=== PATIENT | female | born 2000 | race Caucasian/White ===

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

== ENCOUNTER 2021-03-25 03:36 | Emergency (ER) | payer SELFPAY ==
[~2021-03-25] VITALS: Ht 157.5 cm; Wt 54.5 kg
[~2021-03-25 03:36] MED LIST changes: +AZIT250T6 PO
--- NOTE | 2021-03-25 04:09 | PHYS DOC ---
Past History Past Medical History: Anxiety, Other Past Surgical History: No Surgical History Smoking: Less than 1pk/day Alcohol Use: Rarely Drug Use: None Adult General Chief Complaint Chief Complaint: Palpitations HPI HPI Patient is a 21-year-old female who presents with a chief complaint of racing heart after doing cocaine about an hour and a half before coming to the emergency department states that she does cocaine every couple of days. States that about a half an hour before coming in she smokes marijuana to try to calm down. Denies any headache, changes in vision, chest pain, shortness of breath, abdominal pain, nausea, vomiting, dysuria, hematuria or blood in the stool. Denies any numbness/weakness/tingling. Denies any trouble sitting, standing or walking. Denies any hallucinations. Review of Systems Review of Systems Review of systems otherwise unremarkable except noted in HPI Allergies Allergies Allergies Coded Allergies Type Severity Reaction Last Updated Verified egg Allergy Intermediate 08/21/17 Yes Physical Exam Physical Exam Constitutional: Well developed, well nourished, no acute distress, non-toxic appearance. [] HENT: Normocephalic, atraumatic, Eyes: PERRLA, EOMI, conjunctiva normal, no discharge. [] Cardiovascular:Heart rate regular rhythm, no murmur [] Lungs & Thorax: Bilateral breath sounds clear to auscultation [] Skin: Warm, dry, no erythema, no rash. [] Extremities: No tenderness, no cyanosis, no clubbing, ROM intact, no edema. [] Neurologic: Alert and oriented X 3, normal motor function, normal sensory function, able to sit, stand and walk without issue, no focal deficits noted. [] Psychologic: Affect normal, judgement normal, mood normal. [] EKG EKG [] Radiology/Procedures Radiology/Procedures [] Heart Score C/O Chest Pain: No Risk Factors: Risk Factors: DM, Current or recent (<one month) smoker, HTN, HLP, family history of CAD, obesity. Risk Scores: Risk Factors: DM, Current or recent (<one month) smoker, HTN, HLP, family history of CAD, obesity. Course & Med Decision Making Course & Med Decision Making Patient is a 21-year-old female who presents with racing heart after snorting cocaine and smoking marijuana Vital signs not concerning. Physical exam noted above. EKG noted above and normal. Negative . Given diazepam. Discussed all findings with patient advised to quit using wallace destiny and marijuana. Advised to call primary care physician in the morning and update on ED visit and need for discussions about stopping substance abuse. Give strict return precautions to the ED. Patient grateful, verbalized understanding and agreed with plan of discharge. [] Dragon Disclaimer Dragon Disclaimer This electronic medical record was generated, in whole or in part, using a voice recognition dictation system. Departure Departure: Impression: Primary Impression: Cocaine abuse Additional Impression: Marijuana abuse Disposition: HOME / SELF CARE / HOMELESS Condition: GOOD Referrals: GRANT DUNN MD (PCP) Patient Instructions: Cocaine Abuse-Brief, Substance Abuse-Brief Additional Instructions: Thank you for coming into the emergency department tonight and allowing us to take care of you. Please read all of the attached information very carefully to go back over what we discussed. You were given a benzodiazepine to control anxiety and feelings of racing heart. Your heart was not racing here in the em ergency department and your blood pressure was normal. Please call your primary care physician in the morning to update on your ED visit and discuss ways of stopping substance use as these can cause heart attacks and strokes. Please come back to the emergency department immediately with new or concerning symptoms as discussed. Problem Qualifiers SONYA MCCULLOUGH MD Mar 25, 2021 04:09
--- NOTE | 2021-03-25 04:15 | EKG ---
[address] [address] Test Date: 2021-03-25 Test Time: 03:55:17 Pat Name: RENETTA KEVIN Department: Room: Gender: F Senior Chemical Engineer: : 2000 Requested By: SONYA MCCULLOUGH Order Number: [id number] Reading MD: Neymar Jaimes Measurements Intervals [place] Rate: 68 P: 32 CT: 114 QRS: 52 QRSD: 86 T: 38 QT: 382 QTc: 406 Interpretive Statements SINUS RHYTHM T ABNORMALITY IN ANTEROSEPTAL LEADS ABNORMAL ECG RI6.02 No previous ECG available for comparison Electronically Signed On 03-25-2021 11:45:56 CDT by Neymar Jaimes
[2021-03-25 04:18] VITALS: BP 144/82
[2021-03-25] MEDS ORDERED: diazePAM 5 MG TABLET. PO ONE (04:30)
== END 2021-03-25 04:28 | disposition home or self-care (01) ==
LOC: ER 03:36
DX: F14.10 Cocaine abuse, uncomplicated (principal); F12.10 Cannabis abuse, uncomplicated; F17.200 Nicotine dependence, unspecified, uncomplicated; F41.9 Anxiety disorder, unspecified; Z91.012 Allergy to eggs
CPT/HCPCS: 81025; 93005; 99283

== ENCOUNTER 2021-07-14 07:49 | Emergency (ER) | payer OTHER ==
[~2021-07-14] VITALS: Ht 157.5 cm; Wt 62.1 kg
[2021-07-14] MEDS ORDERED: ACETAMINOPHEN 500 MG TABLET PO ONE (08:45)
[2021-07-14] MEDS ORDERED: ONDANSETRON ODT 4 MG TAB.RAPDIS PO ONE (08:45)
[2021-07-14] MEDS ORDERED: ACETAMINOPHEN 325 MG TABLET PO ONE (08:45)
[2021-07-14 09:24] LABS: AMORPHOUS SEDIMENT,UR PRESENT /HPF; BACTERIA,URINE FEW /HPF (0-FEW); BILIRUBIN,URINE NEG (NEG); CLARITY,URINE TURBID; COLOR,URINE AMBER; GLUCOSE,URINE NEG (NEG); NITRITE,URINE NEG (NEG); RBC,URINE 0 /HPF (0-2); SQUAMOUS EPITHELIAL CELL,UR FEW /LPF
--- NOTE | 2021-07-14 09:37 | RAD ---
INDICATION: Reason: abdominal pain in / Spl. Instructions: / History: COMPARISON: None. TECHNIQUE: Grayscale and color ultrasound images of the pelvis. FINDINGS: Uterus: 97 x 72 x 77 mm. Intrauterine gestational sac is seen and unremarkable. Too early in gestation to adequately assess p lacenta. pole seen. CRL: 27 mm. Estimated Gestational Age: 9 weeks and 3 days based on ultrasound and 8 weeks and 5 days based on las t menstrual. Heart Beat: 175 Right Ovary: 36 x 24 x 13 mm. Left Ovary: 30 x 24 x 13 mm. Vascular flow identified to bilateral ovaries. IMPRESSION: * Intrauterine is seen with positive heart beat. * Recommend routine anomaly screening at 18-22 weeks. Electronically signed by: Bridger Delgado MD (07/14/2021 9:35 AM) [id number]
[2021-07-14] MEDS ORDERED: ONDA4TAB12 PO (10:28)
[2021-07-14] MEDS ORDERED: PREN1TAB86 PO (10:28)
--- NOTE | 2021-07-14 10:29 | PHYS DOC ---
Past History Past Medical History: Anxiety, Other Additional Past Medical Histor: paracardial fat necrosis Past Surgical History: No Surgical History Smoking: Less than 1pk/day Alcohol Use: None Drug Use: None General Adult EDM: Chief Complaint: ABDOMINAL PAIN IN HPI: HPI: Patient is a [age] year old [sex] who presents with [] Review of Systems: Review of Systems: Constitutional: Denies fever or chills Eyes: Denies change in visual acuity HENT: Denies nasal congestion or sore throat Respiratory: Denies cough or shortness of breath Cardiovascular: Denies chest pain or edema GI: Denies abdominal pain, nausea, vomiting, bloody stools or diarrhea : Denies dysuria Musculoskeletal: Denies back pain or joint pain Integument: Denies rash Neurologic: Denies headache, focal weakness or sensory changes Endocrine: Denies polyuria or polydipsia Lymphatic: Denies swollen glands Psychiatric: Denies depression or anxiety Current Medications: Current Meds: Current Medications Medications (Trade) Dose Ordered Sig/Sonido Start Time Stop Time Status Last Admin Dose Admin Acetaminophen (Tylenol) 325 mg STK-MED ONCE 07/14/21 08:45 07/14/21 08:45 DC Ondansetron HCl (Zofran Odt) 4 mg 1X ONCE 07/14/21 08:45 07/14/21 09:08 DC 07/14/21 08:51 4 MG Allergies: Allergies: Allergies Coded Allergies Type Severity Reaction Last Updated Verified egg Allergy Intermediate 07/14/21 Yes Physical Exam: PE: Constitutional: Well developed, well nourished, no acute distress, non-toxic appearance. [] HENT: Normocephalic, atraumatic, bilateral external ears normal, oropharynx moist, no oral exudates, nose normal. [] Eyes: PERRLA, EOMI, conjunctiva normal, no discharge. [] Neck: Normal range of motion, no tenderness, supple, no stridor. [] Cardiovascular:Heart rate regular rhythm, no murmur [] Lungs & Thorax: Bilateral breath sounds clear to auscultation [] Abdomen: Bowel sounds normal, soft, no tenderness, no masses, no pulsatile masses. [] Skin: Warm, dry, no erythema, no rash. [] Back: No tenderness, no CVA tenderness. [] Extremities: No tenderness, no cyanosis, no clubbing, ROM intact, no edema. [] Neurologic: Alert and oriented X 3, normal motor function, normal sensory function, no focal deficits noted. [] Psychologic: Affect normal, judgement normal, mood normal. [] Current Patient Data: Labs: Laboratory Tests Test 07/14/21 08:50 07/14/21 09:09 Urine Collection Type Void Urine Color Ophelia Urine Clarity Turbid Urine pH 7.0 Urine Specific Greene 1.020 Urine Protein 30 mg/dl (NEG-TRACE) Urine Glucose (UA) Neg mg/dL (NEG) Urine Ketones (Stick) 40 mg/dL (NEG) Urine Blood Neg (NEG) Urine Nitrite Neg (NEG) Urine Bilirubin Neg (NEG) Urine Urobilinogen Dipstick 1.0 mg/dL (0.2 mg/dL) Urine Leukocyte Esterase Trace (NEG) Urine RBC 0 /HPF (0-2) Urine WBC 1-4 /HPF (0-4) Urine Squamous Epithelial Cells Few /LPF Urine Amorphous Sediment Present /HPF Urine Bacteria Few /HPF (0-FEW) Urine Mucus Slight /LPF POC Urine HCG, Qualitative hcg positive (Negative) Vital Signs: Vital Signs Date Time Temp Pulse Resp B/P (MAP) Pulse Ox O2 Delivery O2 Flow Rate FiO2 07/14/21 09:06 79 20 111/59 (76) 100 Room Air 07/14/21 08:04 98.8 EKG: EKG: [] Radiology/Procedures: Radiology/Procedures: [] Heart Score: Risk Factors: Risk Factors: DM, Current or recent (<one month) smoker, HTN, HLP, family history of CAD, obesity. Risk Scores: Score 0 - 3: 2.5% MACE over next 6 weeks - Discharge Home Score 4 - 6: 20.3% MACE over next 6 weeks - Admit for Clinical Observation Score 7 - 10: 72.7% MACE over next 6 weeks - Early Invasive Strategies Course & Med Decision Making: Course & Med Decision Making Pertinent Labs and Imaging studies reviewed. (See chart for details) [] Dragon Disclaimer: Dragon Disclaimer: This electronic medical record was generated, in whole or in part, using a voice recognition dictation system. Departure Departure: Impression: Primary Impression: Abdominal pain during in first trimester Additional Impression: Vaginal discharge during in first trimester Disposition: 01 HOME / SELF CARE / HOMELESS Condition: STABLE Referrals: PCP,NO (PCP) PAOLA LOVE MD Patient Instructions: ABCs of , Abdominal Pain During , [id number], Morning Sickness, [id number] Additional Instructions: You have elected to forego a pelvic exam on today's visit. As such we were unable to test for infections that can cause problems with your and can be the cause of your pain. As such you have decided to accept the risks of not treating a possible infection. These infections can cause serious harm to you and your baby including permanent disability and/or . Please follow closely with your doctor to ensure that you don't have one of these infections. Scripts Vit/Iron Fumarate/Fa ( TABLET) 1 Each Tablet 1 TAB PO DAILY for for 30 Days, #30 TAB 0 Refills Prov: PAOLA ZAPATA DO 07/14/21 Ondansetron (ONDANSETRON ODT) 4 Mg Tab.rapdis 1 TAB PO PRN Q6-8HRS PRN for NAUSEA, #16 TAB Prov: PAOLA ZAPATA DO 07/14/21 PAOLA ZAPATA DO Jul 14, 2021 10:28
[2021-07-14 10:33] VITALS: BP 130/71
== END 2021-07-14 10:33 | disposition home or self-care (01) ==
LOC: ER 07:49
DX: O46.91 Antepartum hemorrhage, unspecified, first trimester (principal); R10.9 Unspecified abdominal pain; Z3A.09 9 weeks gestation of pregnancy
CPT/HCPCS: 36415; 76801; 81001; 81025; 84702; 87086; 99285; Q0162